=== PATIENT | female | born 1995 | race Caucasian/White ===

== ENCOUNTER 2017-04-13 20:57 | Emergency (ER) | payer OTHER ==
[~2017-04-13] VITALS: Ht 162.6 cm; Wt 54.4 kg
--- NOTE | 2017-04-13 21:15 | NUR ---
PT BIBMOTHER AND W/C TO ER BED 4, PT N/V/D WITH CHILLS X 1 HR PT. PT AOX4 RR EVEN AND UNLABORED. NO SOB NOTED. NAD NOTED. NO NVD AT THIS TIME. PT NOT DIAPHORETIC. PT GOWNED AND PLACED ON MONITOR WAITING FOR MD ROWE.
--- NOTE | 2017-04-13 21:16 | NUR ---
PT NOTED ANXIOUS. MOTHER AT BEDSIDE.
[2017-04-13] MEDS ORDERED: ONDANSETRON HCL/PF 4 MG/2 ML VIAL ONE (21:26)
[2017-04-13] MEDS ORDERED: IV SET PRIMARY PUMP SET 1 EA INFUS.SET MC ONE (21:26)
[2017-04-13] MEDS ORDERED: IV NS 0.9% 1,000 ML ONE (21:26)
[2017-04-13] MEDS ORDERED: FAMOTIDINE/PF INJ 20 MG/2 ML VIAL IV ONE (21:26)
[2017-04-13 21:40] LABS: BASOPHILS # (AUTO) 0.3 /CMM (0.0-0.2); BASOPHILS % (AUTO) 2.4 % (0.0-2.0); EOSINOPHILS % (AUTO) 0.2 % (0.0-6.0); HEMATOCRIT 50 % (33-45); HEMOGLOBIN 16.6 g/dL (11.5-14.8); LYMPHOCYTES # (AUTO) 0.6 /CMM (0.8-4.8); LYMPHOCYTES % (AUTO) 4.5 % (20.0-44.0); MEAN CORPUSCULAR HEMOGLOBIN 30 PG (26.0-33.0); MEAN CORPUSCULAR HGB CONC 33 g/dl (31.0-36.0); MEAN CORPUSCULAR VOLUME 89 fL (82-100); MONOCYTES # (AUTO) 0.6 /CMM (0.1-1.30); MONOCYTES % (AUTO) 4.5 % (2.0-12.0); NEUTROPHILS # (AUTO) 12.5 /CMM (1.8-8.9); NEUTROPHILS % (AUTO) 88.4 % (43.0-81.0); PLATELET COUNT (AUTO) 296 /CMM (150-450); RDW COEFFICIENT OF VARIATION 12.3 (11.5-15.0); RED BLOOD CELL COUNT(AUTO) 5.58 MIL/uL (4.0-5.2)
--- NOTE | 2017-04-13 21:42 | NUR ---
URINE COLLECTED. CALLED LAB FOR OPERATIONS RESEARCH ANALYST.
[2017-04-13] MEDS: IV NS 0.9% 1,000 ML BAG IV ONE (21:43)
[2017-04-13] MEDS: FAMOTIDINE/PF INJ 20 MG/2 ML VIAL IV ONE (21:43)
[2017-04-13] MEDS: ONDANSETRON HCL/PF 4 MG/2 ML VIAL IV ONE (21:44)
[2017-04-13 21:50] LABS: CALCIUM, SERUM 9.4 mg/dL (8.5-10.1); POTASSIUM 3.7 mmol/L (3.5-5.1)
[2017-04-13 21:56] LABS: ALBUMIN 4.4 g/dL (3.4-5.0); BILIRUBIN,DIRECT 0.2 mg/dL (0.0-0.2); BILIRUBIN,TOTAL 1.1 mg/dL (0.2-1.0); TOTAL PROTEIN, SERUM 8.6 g/dL (6.4-8.2)
--- NOTE | 2017-04-13 22:30 | NUR ---
DR. MELENDEZ AT BEDSIDE FOR EVAL.
[2017-04-13 23:17] LABS: APPEARANCE,URINE TURBID (CLEAR); BILIRUBIN,URINE NEGATIVE (NEGATIVE); BLOOD, URINE NEGATIVE Ery/uL (NEGATIVE); COLOR,URINE YELLOW (YELLOW); KETONES,URINE 1+ (NEGATIVE); LEUKOCYTE ESTERASE ,URINE 1+ (NEGATIVE); NITRITE, URINE NEGATIVE (NEGATIVE); PROTEIN,URINE NEGATIVE (NEGATIVE); UGLUCOSE NEGATIVE (NEGATIVE); UROBILINOGEN,URINE 0.2 EU/dL (0.2)
[2017-04-13 23:21] LABS: PREGNANCY TEST URINE QUAL NEGATIVE (NEGATIVE)
[2017-04-13 23:26] LABS: ADD URINE CULTURE YES; BACTERIA,URINE Few /HPF (None Seen); RBC,URINE 0-3 /HPF (0-2); SQUAMOUS EPITHELIAL CELL,UR Few /HPF (None Seen)
--- NOTE | 2017-04-13 23:30 | NUR ---
IV removed. Catheter intact and site benign. Pressure and 4x4 applied to site. No bleeding noted. Patient discharged to home in stable condition. Written and verbal after care instructions given. Patient verbalizes understanding of instruction. ambulatory with a steady gait
[2017-04-14 00:12] VITALS: BP 110/62
== END 2017-04-13 23:30 | disposition home or self-care (01) ==
LOC: ER 20:57
DX: R11.2 Nausea with vomiting, unspecified (principal); E86.0 Dehydration; R82.99 Other abnormal findings in urine
CPT/HCPCS: 36415; 80048-TC; 80076-TC; 81000-TC; 83690-TC; 84703-TC; 85025-TC; 87086-TC; A4606; J2405; J3490; J7030; Z7610

== ENCOUNTER 2017-12-17 11:30 | Emergency (ER) | payer BC, OTHER ==
[~2017-12-17] VITALS: Ht 162.6 cm; Wt 54.4 kg
[2017-12-17 11:42] VITALS: BP 120/52
[2017-12-17] MEDS ORDERED: ONDANSETRON 4 MG TAB.RAPDIS SL ONE (12:30)
[2017-12-17] MEDS ORDERED: IBUPROFEN 600 MG TABLET PO ONE ×2 (12:30→12:37)
[2017-12-17] MEDS ORDERED: ONDANSETRON 4 MG TAB.RAPDIS ONE (12:37)
== END 2017-12-17 13:04 | disposition home or self-care (01) ==
LOC: ER 11:33
DX: R11.0 Nausea (principal); R50.9 Fever, unspecified
CPT/HCPCS: 99283; A4606; Q0162; Z7610